=== PATIENT | male | born 1955 | race Caucasian/White ===

== ENCOUNTER → 2016-10-17 | Outpatient (CLI) | payer MEDICARE ==
--- NOTE | 2016-10-17 16:02 | KCIC ---
PROCEDURE Two-view chest HISTORY Cough, chest pain, shortness of air worse with lying down for 1 week, COPD COMPARISON March 26, 2009 and two-view chest March 08, 2008 FINDINGS Two views of the chest are submitted. There again 2 spinal stimulator leads, one terminating at the approximate T9-10 level and the other at the approximate T5 level. There is no pneumothorax or pleural fluid. There is probably a tortuous thoracic aorta, similar in appearance. Pericardial cardiac silhouette is stable, considered within normal limits. No new lobar consolidation is identified. IMPRESSION No acute radiographic abnormality is identified. Electronically signed by: Amauri Amado MD (Oct 17, 2016 16:00:15)
== END | disposition home or self-care (01) ==
LOC: KCIC 15:16
PROVIDERS: ATTEND Nurse Practitioner Family
DX: J44.1 Chronic obstructive pulmonary disease with (acute) exacerbation (principal); R05 Cough; R07.9 Chest pain, unspecified; R06.02 Shortness of breath
CPT/HCPCS: 71020

== ENCOUNTER → 2016-11-15 | Outpatient (CLI) | payer MEDICARE ==
--- NOTE | 2016-11-15 16:25 | RAD ---
CT scan of the chest without contrast 11/15/2016 Clinical history: Recent pneumonia. Popping sound in left chest with inspiration. Technique: Unenhanced, contiguous, 5 mm axial sections were obtained through the chest and upper abdomen. Findings: Comparison study is dated 04/19/2008. Mild scattered atherosclerotic plaque formation is seen involving the thoracic aorta and its branches. Fairly extensive coronary artery calcifications are seen. The heart is borderline enlarged. Ectasia of the ascending thoracic aorta is again seen. This measures 5.1 cm in greatest diameter. It has not significantly changed. No hilar, mediastinal or axillary lymphadenopathy is seen. Linear bands of subsegmental atelectasis are seen involving both lower lobes. No area of consolidation is noted. No pneumothorax or pleural effusion is seen. Images through the upper abdomen demonstrate atherosclerotic calcification of the abdominal aorta and its branches. Degenerative changes are seen involving the thoracic spine. Spinal stimulator leads are noted in place. Old healed left-sided rib fractures are noted. Impression: No acute abnormality is seen.
== END | disposition home or self-care (01) ==
LOC: CT 13:42
PROVIDERS: ATTEND Internal Medicine Critical Care Medicine
DX: J18.9 Pneumonia, unspecified organism (principal); I25.10 Atherosclerotic heart disease of native coronary artery without angina pectoris
CPT/HCPCS: 71250

== ENCOUNTER → 2018-06-30 | Outpatient (CLI) | payer MEDICARE, BC ==
--- NOTE | 2018-06-30 11:16 | RAD ---
NUCLEAR MEDICINE VENTILATION PERFUSION SCAN History: Dyspnea x1 month. Comparison: Two-view chest, same day. Technique: Patient is initially ventilated with 12 mCi of xenon-133 gas. Anterior and posterior sequential images of the lungs obtained with initial breath-hold, equilibrium, and washout phase. Perfusion portion performed after intravenous administration of 5.5 mCi Technetium 99m MAA. Multiple projection planar images of the lungs were obtained. Findings: The initial breath-hold ventilation images are relatively homogeneous. No retention of tracer is seen on the washout phase images. Perfusion images demonstrate no mismatched segmental perfusion defects. IMPRESSION: Low probability for pulmonary embolus. Electronically signed by: Justin Malik MD (06/30/2018 11:12 AM) [id number]
--- NOTE | 2018-06-30 15:03 | RAD ---
EXAM: Chest, 2 views. HISTORY: Chest pain. COMPARISON: CT dated 11/15/2016. FINDINGS: 2 views of the chest are obtained. There is no infiltrate, pleural effusion or pneumothorax. The heart is normal in size. There are healed rib fractures. There are dorsal column stimulator leads overlying the thoracic spine. IMPRESSION: No acute pulmonary finding. Electronically signed by: Corin Smiley MD (06/30/2018 3:00 PM) [id number]
== END | disposition home or self-care (01) ==
LOC: NM 10:07
PROVIDERS: ATTEND Internal Medicine Critical Care Medicine
DX: R07.9 Chest pain, unspecified (principal)
CPT/HCPCS: 71046; 78582; 96374; A9540; A9558

== ENCOUNTER → 2019-03-18 | Outpatient (CLI) | payer MEDICARE, BC ==
--- NOTE | 2019-03-18 12:32 | KCIC ---
AP and Lateral Views of the Chest 03/18/2019 12:00 AM Indication: Dyspnea Comparison: Chest radiograph June 30, 2018 Findings: Dorsal column Stimulator noted. No pneumothorax, pleural effusion, or focal consolidative infiltrate is seen. Tortuosity of the thoracic aorta is noted. Heart size is within normal limits. Bony thorax is intact. Mild elevation of the right hemidiaphragm is similar. IMPRESSION: No radiographic evidence of acute cardiopulmonary process. Electronically signed by: Yash Apodaca MD (03/18/2019 12:29 PM) [id number]
== END | disposition home or self-care (01) ==
LOC: KCIC 10:16
PROVIDERS: ATTEND Internal Medicine Critical Care Medicine
DX: J98.6 Disorders of diaphragm (principal); R06.00 Dyspnea, unspecified
CPT/HCPCS: 71046

== ENCOUNTER → 2019-04-30 | Outpatient (CLI) | payer MEDICARE, BC ==
[~2019-04-30] MED LIST: ALBU0.63 NEB; AMLO10TA8 PO; ATORVASTATIN CA80 MG PO; BUPR150T8 PO; BUSP5TAB PO; CARV25TA PO; DULO60CA6 PO; FLUT1DIS3 IH; GABA300C18 PO; HYDR12.58 PO; INSU100I16 SQ; IOHEXOL 240 MG/ML 50ML VIAL. PO ONE; IOHEXOL 300 MG/ML 100ML VIAL. IV ONE; LANS30CA PO; LINZESS290 MCG PO; LISI-130 PO; METF10007 PO; MISO200T PO; RANO10002 PO; SILD20TA2 PO; TERB250T11 PO; TIOT18CA IH; TRAZ-86 PO; ZOLP12.54 PO
--- NOTE | 2019-04-30 17:37 | KCIC ---
CT study of the abdomen and pelvis with contrast Clinical indications: Abdominal pain. History of appendectomy. Constipation. TECHNIQUE: After IV infusion of 100 cc of Omnipaque 300, helical CT scanning of the abdomen and pelvis was performed. GI contrast was administered per mouth. PQRS compliance Statement One or more of the following individualized dose reduction techniques were utilized for this study: 1. Automated exposure control 2. Adjustment of the mA and/or kV according to patient size 3. Use of iterative reconstruction technique COMPARISON: None available FINDINGS: Diffuse fatty infiltration of the liver is seen. The spleen is not enlarged. Pancreas and gallbladder are normal. No extrahepatic biliary ductal dilatation is seen. No adrenal mass is evident. Bilateral renal cysts are seen. No hydronephrosis is evident. No hydroureter is seen. No urinary tract stone is seen. Urinary bladder wall is thickened and this may be due to incomplete distention but could be due to muscle hypertrophy related to enlargement of the prostate gland. The prostate gland is enlarged and indents the floor of the urinary bladder. The prostate gland measures 6.7 cm transversely. Seminal vesicles are symmetric. No focal aneurysmal dilatation of the abdominal aorta is seen. No enlarged abdominal or pelvic lymphadenopathy is evident. No obstructive bowel pattern is evident. No free intraperitoneal air or mesenteric edema or free fluid is evident. There is a nodule within the second portion of the duodenum measuring 2 cm. No lung base consolidation is seen. No lytic process is seen. IMPRESSION: No acute abnormality of the abdomen or pelvis. Moderate fecal retention throughout the colon 2 cm nodule within the lumen of the second portion of the duodenum. This may further evaluated with endoscopy or may be followed in [address] study of the abdomen and GI contrast material since it is possible that it could represent a food bolus. Enlarged prostate gland. Diffuse fatty infiltration of the liver. Electronically signed by: Travon Patel MD (04/30/2019 5:34 PM) [id number]
== END | disposition home or self-care (01) ==
LOC: KCIC CT 07:50
PROVIDERS: ATTEND Family Medicine
DX: K59.09 Other constipation (principal); N40.0 Benign prostatic hyperplasia without lower urinary tract symptoms; I71.4 Abdominal aortic aneurysm, without rupture; K76.0 Fatty (change of) liver, not elsewhere classified; Z90.89 Acquired absence of other organs
CPT/HCPCS: 74177; Q9966; Q9967

== ENCOUNTER → 2019-07-21 | Outpatient (CLI) | payer MEDICARE, BC ==
[~2019-07-21] MED LIST changes: -IOHEXOL 240 MG/ML 50ML VIAL. PO ONE; -IOHEXOL 300 MG/ML 100ML VIAL. IV ONE
--- NOTE | 2019-07-21 17:06 | KCIC ---
Three-view left rib detail series and PA view chest x-ray Clinical indications: COPD. Left-sided rib pain. Patient fell one week ago. COMPARISON: March 18, 2019 chest x-ray. FINDINGS: There are nondisplaced fractures of the posterior lateral aspect of the left seventh and eighth ribs. Chest x-ray demonstrates no acute lung infiltrate or pleural effusion or pulmonary edema or pneumothorax. Heart size and mediastinum and pulmonary vasculature and both [place] are stable. Thoracic spinal canal stimulator device is again evident. IMPRESSION: Acute left seventh and eighth rib fractures without pneumothorax or pleural effusion. Electronically signed by: Travon Patel MD (07/21/2019 5:03 PM) [facility]
== END | disposition home or self-care (01) ==
LOC: KCIC 10:17
PROVIDERS: ATTEND Family Medicine
DX: S22.42XA Multiple fractures of ribs, left side, initial encounter for closed fracture (principal); J44.1 Chronic obstructive pulmonary disease with (acute) exacerbation; R07.81 Pleurodynia; W19.XXXA Unspecified fall, initial encounter; Y93.89 Activity, other specified; Y92.89 Other specified places as the place of occurrence of the external cause; Y99.8 Other external cause status
CPT/HCPCS: 71101

== ENCOUNTER → 2019-08-26 | Outpatient (CLI) | payer MEDICARE, BC ==
[~2019-08-26] MED LIST changes: +TRAZ-123 PO; -TRAZ-86 PO
--- NOTE | 2019-08-26 17:29 | KCIC ---
AP and lateral lumbar spine radiographs to include bilateral oblique radiographs and flexion and extension views 08/26/2019 CLINICAL HISTORY: Low back pain. Recent fall. AP, 2 lateral, bilateral oblique, and flexion and extension lateral digital radiographs of the lumbar spine were obtained. A spinal stimulator overlies the right gluteal region. Leads extend to the thoracic spine. The superior extent is not included on this study. The alignment of the lumbar vertebrae is within normal limits and is maintained on the flexion and extension radiographs. Degenerative changes are seen involving lower thoracic and throughout the lumbar disc spaces consisting of vertebral endplate sclerosis and moderate anterior vertebral body osteophyte formation. Degenerative changes are seen involving the facet joints predominantly at the L4-5 and L5-S1 levels. No fracture or subluxation of the lumbar vertebrae seen. Atherosclerotic calcification of the abdominal aorta is noted. IMPRESSION: No fracture or subluxation of the lumbar vertebrae is seen. Electronically signed by: Holger Singer MD (08/26/2019 5:26 PM) [id number]
== END | disposition home or self-care (01) ==
LOC: KCIC 14:36
PROVIDERS: ATTEND Family Medicine
DX: M47.815 Spondylosis without myelopathy or radiculopathy, thoracolumbar region (principal); M25.78 Osteophyte, vertebrae; I70.0 Atherosclerosis of aorta; W19.XXXA Unspecified fall, initial encounter; Y93.89 Activity, other specified; Y92.89 Other specified places as the place of occurrence of the external cause
CPT/HCPCS: 72114

== ENCOUNTER → 2020-03-24 | Outpatient (CLI) | payer MEDICARE, BC ==
[~2020-03-24] MED LIST changes: -SILD20TA2 PO; +SILD20TA4 PO; -TERB250T11 PO; +TERB250T84 PO; -ZOLP12.54 PO; +ZOLP12.56 PO
--- NOTE | 2020-03-24 12:57 | KCIC ---
EXAM: Head CT without contrast. HISTORY: Syncope and collapse. TECHNIQUE: Computed tomographic images of the head were obtained without contrast. *One or more of the following individualized dose reduction techniques were utilized for this examination: 1. Automated exposure control. 2. Adjustment of the mA and/or kV according to patient size. 3. Use of iterative reconstruction technique. COMPARISON: None. FINDINGS: There is no acute or subacute extra-axial or intraparenchymal hemorrhage. There is no mass effect or midline shift. There is no hydrocephalus. There are areas of decreased attenuation within the cerebral white matter, nonspecific and likely related to chronic small vessel disease. There is cerebral volume loss. The visualized portions of the orbits, paranasal sinuses and mastoid air cells are unremarkable. No suspicious calvarial lesion is seen. IMPRESSION: No acute intracranial findings. Electronically signed by: Corin Smiley MD (03/24/2020 12:54 PM) [facility]
== END | disposition home or self-care (01) ==
LOC: KCIC CT 10:26
PROVIDERS: ATTEND Family Medicine
DX: R55 Syncope and collapse (principal); R42 Dizziness and giddiness; R51 Headache
CPT/HCPCS: 70450